=== PATIENT | male | born 1955 | race Caucasian/White ===

== ENCOUNTER 2020-06-13 17:13 | Emergency (ER) | payer OTHER, SELFPAY ==
--- NOTE | 2020-06-13 17:16 | ED.GENADUL_ITS ---
Discharge Plan Disposition Patient Disposition: HOME Condition: Good Discharge Details Chief Complaint: Laceration Clinical Impression: Avulsion of finger tip Primary Care Provider: Nichole,Local ED Provider: Linda Ambrocio Discharge Instructions Instructions: Skin Avulsion (ED), Skin Adhesive Care (ED) Additional Instructions: The avulsed area of tissue from your left middle finger was covered with adhesive today. Please allow us to come off naturally. Do not put any ointment over the wound as this may cause premature breakdown of the adhesive. Please keep covered with splint to help with this,. Tetanus was updated today. Please monitor wound for signs infection including redness, warmth, drainage, increased pain, fever/chills. If you develop these or other new/worsening symptoms please seek care urgently once again. Please follow up with primary care as needed. Medical Decision Making Patient is a pleasant 64-year-old [id number] male presents today with chief complaint of laceration to left index finger. Reports a prior to arrival he was working on his lawnmower when he slipped and avulsed the distal tip of his left middle finger on the mower blade. Reports that he is not up-to-date on tetanus. He denies other injury at the time of the incident. On exam, patient is resting comfortably. He approximately 1 cm area avulsed tissue at the distal aspect of the left middle finger. Surrounding tissue has jagged edges. No bone or tendinous involvement. Sensation intact at the skin edges. She patient is actively bleeding. Patient I discussed Wound treatment options. At this point, there is no tissue to be closed. Will update his tetanus today. Patient I discussed risks as well as expected procedural steps associated with digital block, cleansing of the wound followed by covering her adhesive. We discussed this at length. He was understanding and wished to proceed. Using standard sterile technique. Digital block was performed to the left middle finger. 1% lidocaine plain was infiltrated. 5 cc was used. The sufficiently anesthetized the digit. The wound was then copiously irrigated and cleansed with chlorhexidine. Wound was explored to base in a bloodless field, tourniquet was utilized. Patient tolerated this well. Thin layer of adhesive was then applied. Patient and I discussed wound care in depth. We discussed care of adhesive. Signs and symptoms of infection was discussed. Return precautions given. Will give foam and metal splint to help with discomfort. He will f/u with PCP as needed. All questions and concerns were addressed, he is in agreement with this plan. HPI General Mode of arrival: ambulatory . Date/Time Provider Initiated Documentation: 06/13/20 17:15 . Limitations to Documentation: no limitations . Information obtained by: patient and RN notes reviewed . History of Present Illness 64 year old M presents to the emergency department with the chief complaint of avulsion distal tip of left middle finger, described as mild, with intensity rated at 2. Quality is described as aching, and is localized to the left and upper extremity. Patient reports no radiation. Patient started experiencing this minute(s) and it has been constant. No relieving factors improve symptom(s), No exacerbating factors reported . Patient notes no other symptoms.. Patient did receive the following treatments prior to arrival, none Related Data Allergies Allergy/AdvReac Type Severity Reaction Status Date / Time No Known Allergies Allergy Unverified 06/13/20 17:28 Review of Systems Constitutional Constitutional: Reports as per HPI, Denies chills and Denies fever(s) Musculoskeletal Musculoskeletal: Reports as per HPI Integumentary/Breasts Skin/Breast: Reports as per HPI Neurologic Neurologic: Reports as per HPI, Denies sensory deficit and Denies paresthesias [facility] Social History Do you feel safe at home: Yes Do you feel safe in your relationship?: Yes Exam Const General: cooperative, healthy appearing, comfortable, no acute distress and well developed Nutritional Appearance: average body habitus and well nourished Orientation: alert and awake Resp Effort & Inspection: normal respiratory effort, able to speak in complete sentences and no respiratory distress Cardio Rate: regular rate Rhythm: regular rhythm Skin Trauma: laceration (avulsion as below) Neuro General: patient alert and patient awake Cognition: normal cognition Speech: speech normal Gait: normal gait Sensory Exam: no sensory deficits noted Extrem Hand/finger images: 1. Area of avulsion. Appoximately 1cm in diameter. Jagged edges. Active bleeding. surrounding tissue has brisk capillary refill. No bone visible or palpable, no tendon involvement. Nail is intact. Psych Appearance: grossly normal and well kempt Mental Status: mental status grossly normal Speech and Movement: speech and movement normal
[2020-06-13 17:18] VITALS: BP 155/93; PULSE 51; RESP 16; TEMP 36.7; O2SAT 93
== END 2020-06-13 18:05 | disposition home or self-care (01) ==
PROVIDERS: Emergency Provider Physician Assistant
DX: S61.213A Laceration without foreign body of left middle finger without damage to nail, initial encounter (principal); W28.XXXA Contact with powered lawn mower, initial encounter
CPT/HCPCS: 12001; 90471

== ENCOUNTER 2025-01-06 17:26 | Emergency (ER) | payer MEDICARE, SELFPAY ==
--- NOTE | 2025-01-06 17:30 | RT.EKG_ITS ---
APPROVED REPORT Exam: Resting ECG Reason for Exam: dizzy Patient Location: E HR:41 bpm ECG Measurements Heart Rate 41 AXIS ND 173 P 82 QRSd 102 QRS 66 QT 462 T 48 QTc 382 Conclusion Sinus bradycardia...rate< 60 Probable left ventricular hypertrophy...multiple LVH criteria No STEMI
[2025-01-06 17:31] VITALS: BP 164/90; PULSE 47; RESP 20; TEMP 36.6; O2SAT 98
--- NOTE | 2025-01-06 17:45 | DI.CT_ITS ---
Exam(s) CT BRAIN NECK CTA EXAM: CT BRAIN NECK CTA CLINICAL HISTORY: Dizziness. TECHNIQUE: Imaging Protocol: Axial CT angiography was performed with multi-slice acquisition and mu lti-planar and/or 3D reconstructions. CONTRAST MATERIAL: Intravenous: Omnipaque 350 Contrast volume:structured data in ml COMPARISON: No exams were available for comparison FINDINGS: CTA Neck W: Aortic arch anatomy: The aortic arch anatomy is conventional and there is no significant stenosis at the origin of the great vessels off of the aortic arch. No intimal flap evident. Anterior circulation: Both common carotid arteries ascend with normal luminal diameters. At the level the carotid bulbs and proximal internal carotid arteries there is mild calcified plaque on the posterior wall of the right carotid bifurcation and origin of right internal carotid artery. Approximately 10 percent stenosis. Right internal carotid artery above this level appears unremarkab le in the upper neck and skull base/carotid canal. On the opposite-left side there is no significant atherosclerotic involvement of the carotid bulb and proximal left ICA and the upper left ICA in the upper neck is patent as well as within the skull bas e-carotid canal. Posterior circulation: Both vertebral arteries originate in conventional fashion off of the subclavian arteries and there is no obvious stenosis at the origin of the vertebral arteries. Both vertebral arteries exhibit normal equal luminal diameters within the foramen transversarium. Both vertebral arteries contribute to the formation of the basilar artery at the skull base. CTA Brain W: Anterior circulation: Both internal carotid arteries are patent in the skull base-carotid canals as well as within the cave rnous sinuses. The supraclinoid aspects of the ICAs are patent. Both A1 segments are patent as are the anterior cer ebral arteries and there is no evidence of aneurysm at the level of the anterior communicating artery . Both middle cerebral arteries are patent with no evidence of significant stenosis nor intraluminal th rombus. There also no aneurysms of these vessels. Posterior circulation: The basilar artery ascends in the midline. Distally it gives off patent bilateral superior cerebella r arteries. Above this level the basilar artery terminates as patent bilateral posterior cerebral arteries. There is no evidence of aneurysm at the tip of the basilar artery nor elsewhere in the [id number] is. CT BRAIN: There is no evidence of intracranial hemorrhage, mass effect, or shift of midline structures. There are no extra-axial fluid collections. Ventricles are not enlarged or shifted. There are no ring enh ancing lesions in the brain and no abnormal meningeal enhancement. IMPRESSION: 1. Patent carotid arteries in the neck. No hemodynamically significant stenosis. There is mild calc ified plaque in the right carotid bulb with approximately only 10 percent stenosis at this level. 2. Vertebral arteries are patent with no evidence stenosis nor dissection. Both vertebral arteries contribute to the formation of the basilar artery at the skull base. 3. Patent intracranial arteries. 4. No acute intracranial findings. No ring enhancing lesions nor abnormal meningeal enhancement. 5. Recommend follow-up MRI/MRA given the symptoms here. RADIATION DOSE DELIVERED: 2,250.36mGy.cm Total DLP DATA REPOSITORY: All CT scans at this facility are submitted to the National Radiology Data Registry (NRDR) Dose Index Registry (DIR) with the [employer] (A[employer]). RADIATION OPTIMIZATION: All CT scans at this facility use at least one of these dose optimization te chniques: automated exposure control; mA and/or kV adjustment per patient size (includes targeted exa ms where dose is matched to clinical indication); or iterative reconstruction.
--- NOTE | 2025-01-06 17:45 | DI.RAD_ITS ---
Exam(s) XR CHEST 2V PA LATERAL EXAM: XR CHEST 2V PA LATERAL CLINICAL HISTORY: Dizziness. TECHNIQUE: 2D digital imaging was performed. COMPARISON: No exams were available for comparison FINDINGS: 2 views: There are surgical clips in the anterior lower mediastinum most probably related to surgery at the GE junction. There is also a screw in the right shoulder glenohumeral joint region. Heart size is normal. The mediastinum is not widened. Lungs are clear. No infiltrates nor pleural effusions. Mild hyperinflation and some emphysematous changes noted. IMPRESSION: Some emphysematous changes. However, no acute infiltrates nor pleural effusions. DATA REPOSITORY: RADIATION DOSE DELIVERED:
--- NOTE | 2025-01-06 17:53 | ED.GENADUL_ITS ---
Discharge Plan Disposition Patient Disposition: Home Condition: Stable Discharge Details Clinical Impression: Vertigo, Vaso-vagal reaction Primary Care Provider: Nichole,Local ED Provider: Alecia Samuels Home Meds and New Rx's Prescriptions: New meclizine 25 mg tablet 25 mg PO BID PRN (Reason: dizziness) Qty: 10 0RF Rx Instructions: Please take one by mouth twice daily as needed for dizziness. Continued sumatriptan tablets 50 mg PO DAILY PRN atorvastatin 20 mg tablet 20 mg PO DAILY Discharge Instructions Instructions: Vasovagal Response, Dizziness, Adult ED Additional Instructions: No evidence of heart attack today, no evidence of stroke on CT. Please take the meclizine as directed twice daily for dizziness. You may also be having a vasovagal response during this also possibly partially due to your low heart rate. Follow up with primary care provider in 3-5 days. Return to ED sooner if any worsening dizziness, syncopal or fainting spells, chest pain or concerns. Thank you for allowing us to care for you today. Referrals: Primary Care Provider [Outside] - 5 days HPI General Mode of arrival: ambulatory . Date/Time Provider Initiated Documentation: 01/06/25 17:39 . Limitations to Documentation: no limitations . Information obtained by: patient and RN notes reviewed . HPI Narrative: 69-year-old male presents to the ER with a chief complaint of dizzy spells where he ends up having emesis. He reports these have been occurring for the last 2 years however they have been increasing in frequency. He had 2 episodes today. He is from out of town around the [place] area. He is bradycardic upon arrival with a rate of 47. He is unsure of what medications he takes. He denies having any heart attack. He denies any diplopia or blurry vision during the episodes. He does have tendinitis chronically. Denies any chest pain abdominal pain or diarrhea. He reports that today he was bending over to put on some snow here when he had the episode he had to sit down and then or into the sink to vomit. Related Data Home Medications ?Medication ?Instructions ?Recorded ?Confirmed atorvastatin 20 mg tablet 20 mg PO DAILY 01/06/25 01/06/25 meclizine 25 mg tablet 25 mg PO BID PRN dizziness #10 tabs 01/06/25 sumatriptan tablets 50 mg PO DAILY PRN 01/06/25 01/06/25 Previous Rx's ?Medication ?Instructions ?Recorded meclizine 25 mg tablet 25 mg PO BID PRN dizziness #10 tabs 01/06/25 Allergies Allergy/AdvReac Type Severity Reaction Status Date / Time No Known Allergies Allergy Verified 01/06/25 17:39 General Stated Complaint: Dizzy/Sync CATARINA: 3 Review of Systems All systems reviewed & are unremarkable except as noted in HPI and below Constitutional Constitutional: Reports as per HPI and Reports headache(s) ENT Ears, Nose, Mouth, and Throat: Reports vertigo, Reports dizziness and Reports headache(s) Cardiovascular Cardiovascular: Reports lightheadedness Gastrointestinal Gastrointestinal: Reports vomiting Neurologic Neurologic: Reports as per HPI, Reports vertigo, Reports dizziness and Reports headache(s) Exam Narrative Exam Narrative: Constitutional: Alert and oriented x3. Appears stated age. Normal body habitus. Head: Normocephalic, no trauma. Eyes: Pupils PERRL, Red reflex noted, EOM's intact. Eyelids symmetrical without lesions, discharge, or swelling. ENT: Bilateral TM's WNL, External ear normal to inspection, no mastoid TTP, swelling, or erythema, Nasal turbinates WNL, no nasal discharge. Normal dentition, Posterior pharynx WNL, no exudate. Chest: RRR, Normal S1, S2, distal pulses intact. Resp: Lungs clear to auscultation bilaterally, no wheezes, rales, or rhonchi. Abdomen: Soft, non-distended, Normoactive bowel sounds all 4 quads. Musculoskeletal: Normal gait, Moves all 4 extremities without difficulty. Skin: No suspicious rashes or lesions. Capillary refill less than 2 sec. Neurologic: Cranial nerves II-XII intact. Alert and oriented x 3. Motor: No deficits noted. Sensory: Intact bilaterally all 4 extremities. Hematologic/Lymphatic: No ecchymosis, no lymphadenopathy. Course Vital Signs Vital signs: Vital Signs Temperature 36.6 C 01/06/25 17:31 Pulse 47 L 01/06/25 17:31 Respiratory Rate 20 01/06/25 17:31 Blood Pressure 164/90 H 01/06/25 17:31 Pulse Oximetry 98 01/06/25 17:31 Temperature 36.6 C 01/06/25 17:31 Pulse 47 L 01/06/25 17:31 Respiratory Rate 20 01/06/25 17:31 Blood Pressure 164/90 H 01/06/25 17:31 Pulse Oximetry 98 01/06/25 17:31 Oxygen Delivery Method Room Air 01/06/25 17:31 Oxygen Flow Rate 0 01/06/25 17:31 Pain Level 0 01/06/25 17:31 Medical Decision Making 69-year-old male presents to the ER with a chief complaint of dizzy spells where he ends up having emesis. He reports these have been occurring for the last 2 years however they have been increasing in frequency. He had 2 episodes today. He is from out of town around the [facility]. He is bradycardic upon arrival with a rate of 47. He is unsure of what medications he takes. He denies having any heart attack. He denies any diplopia or blurry vision during the episodes. He does have tendinitis chronically. Denies any chest pain abdominal pain or diarrhea. He reports that today he was bending over to put on some snow here when he had the episode he had to sit down and then or into the sink to vomit. Workup ordered including CBC CMP serial troponins, PT PTT magnesium urinalysis TSH, CT brain and neck EKG. Differential diagnosis includes but not limited to vertigo, M?ni?re's, vasovagal syndrome, CAD, arrhythmia, electrolyte disturbance, CVA. At this time patient has no focal neurodeficits noted. He is alert and oriented x 3. If seems that his symptoms are brought on by either headaches or position changes. EKG was reviewed by myself and Dr. Espinosa ER attending, no old EKG available for review. Sinus bradycardia. Please see official report. I did order meclizine 25 mg p.o. And orthostatic vital signs. Patient only takes simvastatin and sumatriptan, does not take any beta-blockers. He does have heart rate around 42 which he reports is normal for him. Orthostatic VS WNL, CT brain and neck shows no occlusive pathology, no aneurysm no acute arterial pathology. Patent carotid and vertebral system bilaterally. Patient has had no further episodes while here in the department. Will give a prescription for meclizine. And instructed on strict return instructions. Discussed at length results with patient and family, all their questions answered to the best of my ability. This text was generated using Nuance dictation system, please disregard any oddities of phrase or misspellings. Lab Data Lab results reviewed: Yes I reviewed the patient's lab results. Labs: Laboratory Tests Range/Units 01/06/25 01/06/25 01/06/25 18:06 18:30 18:50 PT (9.1-11.1) sec 11.0 INR (0.9-1.1) 1.1 APTT (20.6-30.2) sec 26.1 Sodium (136-145) mmol/L 142 Potassium (3.5-5.1) mmol/L 4.3 Chloride (98-107) mmol/L 108 H Carbon Dioxide (21.0-32.0) mmol/L 28.0 Anion Gap (3-11) mmol/L 6.0 BUN (7-18) mg/dL 21 H Creatinine (0.70-1.30) mg/dL 1.0 Est GFR (CKD-EPI 2020) (mL/min/1.73m2) 82.49 Glucose (74-106) mg/dL 91 Calcium (8.5-10.1) mg/dL 10.0 Magnesium (1.8-2.4) mg/dL 2.0 Total Bilirubin (0.2-1.0) mg/dL 0.45 AST (15-37) U/L 44 H ALT (16-63) U/L 35 Alkaline Phosphatase (46-116) U/L 130 H Troponin I (<or=76) ng/L 13 Cancelled NT-Pro-B Natriuret Pep (<300) pg/mL 241 Total Protein (6.4-8.2) g/dL 7.0 Albumin (3.4-5.0) g/dL 3.7 TSH (0.36-3.74) uIU/mL 1.47 Urine Color (Yellow) Yellow Urine Clarity (Clear) Clear Urine pH (5-8) 6.0 Ur Specific [place] (1.005-1.025) 1.020 Urine Protein (Neg-Trace) mg/dL Negative Urine Ketones (Negative) mg/dL Negative Urine Blood (Negative) Negative Urine Nitrite (Negative) Negative Urine Bilirubin (Negative) Negative Urine Urobilinogen (Up to 0.2) mg/dL 0.2 Ur Leukocyte Esterase (Negative) Negative Urine Glucose (Negative) mg/dL Negative Range/Units 01/06/25 20:50 PT (9.1-11.1) sec INR (0.9-1.1) APTT (20.6-30.2) sec Sodium (136-145) mmol/L Potassium (3.5-5.1) mmol/L Chloride (98-107) mmol/L Carbon Dioxide (21.0-32.0) mmol/L Anion Gap (3-11) mmol/L BUN (7-18) mg/dL Creatinine (0.70-1.30) mg/dL Est GFR (CKD-EPI 2020) (mL/min/1.73m2) Glucose (74-106) mg/dL Calcium (8.5-10.1) mg/dL Magnesium (1.8-2.4) mg/dL Total Bilirubin (0.2-1.0) mg/dL AST (15-37) U/L ALT (16-63) U/L Alkaline Phosphatase (46-116) U/L Troponin I (<or=76) ng/L Cancelled NT-Pro-B Natriuret Pep (<300) pg/mL Total Protein (6.4-8.2) g/dL Albumin (3.4-5.0) g/dL TSH (0.36-3.74) uIU/mL Urine Color (Yellow) Urine Clarity (Clear) Urine pH (5-8) Ur Specific [place] (1.005-1.025) Urine Protein (Neg-Trace) mg/dL Urine Ketones (Negative) mg/dL Urine Blood (Negative) Urine Nitrite (Negative) Urine Bilirubin (Negative) Urine Urobilinogen (Up to 0.2) mg/dL Ur Leukocyte Esterase (Negative) Urine Glucose (Negative) mg/dL Quality:SDOH Health Related Social Needs: No Data to Display PFSH All Active Problems (Updated 01/06/25 @ 20:04 by Alecia Samuels NP) Vaso-vagal reaction (Acute) Vertigo (Acute) Social History Smoking/Tobacco Use Status: Never Smoking risk assessment performed?: Yes Alcohol Intake: current Alcohol Intake frequency: a few times a month Drug use: Never Substance use type: does not use Housing: house Do you feel safe at home: Yes Do you feel safe in your relationship?: Yes
[2025-01-06 18:31] LABS: INR 1.1 (0.9-1.1); PTT Activated 26.1 sec (20.6-30.2)
[2025-01-06 18:40] VITALS: BP 154/98; BP 164/90; BP 179/89; PULSE 43; PULSE 45; PULSE 53
[2025-01-06 18:47] LABS: ALT 35 U/L (16-63); AST 44 U/L (15-37); Albumin 3.7 g/dL (3.4-5.0); Alkaline Phosphatase 130 U/L (46-116); BUN 21 mg/dL (7-18); Bilirubin, Total 0.45 mg/dL (0.2-1.0); Chloride 108 mmol/L (98-107); Estimated GFR 82.49 (mL/min/1.73m2); Glucose 91 mg/dL (74-106); NT-proBNP 241 pg/mL (<300); Potassium 4.3 mmol/L (3.5-5.1); Sodium 142 mmol/L (136-145); TSH (W/Ref FT4) 1.47 uIU/mL (0.36-3.74); Troponin I 13 ng/L (<or=76)
[2025-01-06 18:53] LABS: Bilirubin Negative (Negative); Blood Negative (Negative); Clarity Clear (Clear); Glucose Negative (Negative); Ketones Negative (Negative); Leukocyte Esterase Negative (Negative); Nitrite Negative (Negative); Urobilinogen 0.2 mg/dL (Up to 0.2)
[2025-01-06] MEDS: Meclizine 25 MG TAB PO ×2 (18:59→20:13)
[2025-01-06] MEDS: Omnipaque 350 MG/ML 100 ML BTL IJ (19:07)
[2025-01-06] MEDS: Normal Saline - Diluent 50 ML VIAL IJ (19:08)
[2025-01-06] MEDS: Normal Saline Flush 10 ML SYR IVP (19:18)
--- NOTE | 2025-01-06 19:56 | DI.VRAD_ITS ---
PROCEDURE INFORMATION: Exam: XR Chest Exam date and time: 01/06/2025 19:20 Age: 69 years old Clinical indication: Other: Dizziness; Prior surgery; Surgery date: 6+ months; Surgery type: Shoulder TECHNIQUE: Imaging protocol: Radiologic exam of the chest. Views: 2 views. COMPARISON: CT BRAIN NECK CTA 01/06/2025 19:05 FINDINGS: Lungs: Emphysema without airspace consolidation. Pleural spaces: No pleural effusion. No pneumothorax. Heart/Mediastinum: Surgical clips at the GE junction. Bones/joints: No acute fracture. IMPRESSION: Emphysema without airspace consolidation. Dictated and Authenticated by: Georgia Coyle MD. Orderin Arvind Alston MD
--- NOTE | 2025-01-06 19:58 | DI.VRAD_ITS ---
PROCEDURE INFORMATION: Exam: CTA Head Without And With Contrast, Arteriography Exam date and time: 01/06/2025 19:05 Age: 69 years old Clinical indication: Dizziness and giddiness TECHNIQUE: Imaging protocol: Computed tomographic angiography of the head without and with contrast. Exam focused on the arteries. 3D rendering (Not supervised by radiologist): MIP and/or 3D reconstructed images were created by the technologist. Radiation optimization: All CT scans at this facility use at least one of these dose optimization techniques: automated exposure control; mA and/or kV adjustment per patient size (includes targeted exams where dose is matched to clinical indication); or iterative reconstruction. Contrast material: OMNIPAQUE 350; Contrast volume: 70 ml; Contrast route: INTRAVENOUS (IV); COMPARISON: No relevant prior studies available. FINDINGS: ANTERIOR CIRCULATION: Right internal carotid artery: Intracranial segment is patent with no significant stenosis. No aneurysm. Right middle cerebral artery: No occlusion or significant stenosis. No aneurysm. Right anterior cerebral artery: No occlusion or significant stenosis. No aneurysm. Left internal carotid artery: Intracranial segment is patent with no significant stenosis. No aneurysm. Left middle cerebral artery: No occlusion or significant stenosis. No aneurysm. Left anterior cerebral artery: No occlusion or significant stenosis. No aneurysm. POSTERIOR CIRCULATION: Right vertebral artery: No occlusion or significant stenosis. No aneurysm. Left vertebral artery: No occlusion or significant stenosis. No aneurysm. Basilar artery: No occlusion or significant stenosis. No aneurysm. Right posterior cerebral artery: No occlusion or significant stenosis. No aneurysm. Left posterior cerebral artery: No occlusion or significant stenosis. No aneurysm. HEAD: Brain: Mild cerebral atrophy. Minimal periventricular white matter hypodensity. No edema or hemorrhage. No midline shift or abnormal enhancement. Cerebral ventricles: . No ventriculomegaly. Bones: . No acute fracture. Orbital cavities: Presumed left cataract repair. Paranasal sinuses: . No fluid levels. Mastoid air cells: . No mastoid effusion. Soft tissues: Unremarkable. IMPRESSION: No acute arterial pathology. No large vessel occlusion. PROCEDURE INFORMATION: Exam: CTA Neck Without And With Contrast Exam date and time: 01/06/2025 19:05 Age: 69 years old Clinical indication: Dizziness and giddiness TECHNIQUE: Imaging protocol: Computed tomographic angiography of the neck without and with contrast. Exam focused on the cervical segments of the vasculature. 3D rendering (Not supervised by radiologist): MIP and/or 3D reconstructed images were created by the technologist. Radiation optimization: All CT scans at this facility use at least one of these dose optimization techniques: automated exposure control; mA and/or kV adjustment per patient size (includes targeted exams where dose is matched to clinical indication); or iterative reconstruction. Contrast material: OMNIPAQUE 350; Contrast volume: 70 ml; Contrast route: INTRAVENOUS (IV); COMPARISON: No relevant prior studies available. FINDINGS: Right common carotid artery: No significant stenosis. No dissection or occlusion. Right internal carotid artery: Extracranial segment is patent with no significant stenosis. No dissection or occlusion. Right external carotid artery: No occlusion or significant stenosis. Left common carotid artery: No significant stenosis. No dissection or occlusion. Left internal carotid artery: Extracranial segment is patent with no significant stenosis. No dissection or occlusion. Left external carotid artery: No occlusion or significant stenosis. Right vertebral artery: No significant stenosis. No dissection or occlusion. Left vertebral artery: No significant stenosis. No dissection or occlusion. Thyroid: Minor heterogeneity of the thyroid with a small left-sided nodule. Follow-up as per institutional protocol. Soft tissues: No significant soft tissue swelling. Bones/joints: No acute fracture or subluxation. IMPRESSION: No acute arterial pathology. Patent carotid and vertebral system bilaterally. Dictated and Authenticated by: Georgia Coyle MD. Orderin Arvind Alston MD
[2025-01-06 20:31] VITALS: BP 180/91; PULSE 50; RESP 14; TEMP 36.6; O2SAT 98
== END 2025-01-06 20:31 | disposition home or self-care (01) ==
PROVIDERS: Emergency Provider Registered Nurse Emergency
DX: R42 Dizziness and giddiness (principal); R55 Syncope and collapse; R00.1 Bradycardia, unspecified
CPT/HCPCS: 36415; 70496; 70498; 80053; 93005; 99285; 71046; 81003; 83735; 83880; 84443; 84484; 85610; 85730; 93010; 99284; J3490